=== PATIENT | female | born 1940 | race Caucasian/White ===

== ENCOUNTER 2018-02-22 20:30 | Emergency (ER) | payer MEDICARE, BC ==
[2018-02-22 20:45] VITALS: BP 130/76
[2018-02-22] MEDS ORDERED: Cephalexin CAP* 500 MG PO ONE (22:26)
--- NOTE | 2018-02-22 22:37 | ED ---
Laceration/Wound HPI - HPI Summary HPI Summary: Complains of skin tear to the dorsal surface of right hand from playing with grandchild.. Tetanus status up-to-date. Denies any other pain or injury. Denies loss of sensation or function distally in her right hand. No anti-coag. - History of Current Complaint Stated Complaint: RT HAND INJURY Time Seen by Provider: 02/22/18 21:29 Hx Obtained From: Patient Mechanism of Injury: Sharp/Blunt Trauma Onset Severity: Mild Current Severity: Mild Pain Intensity: 4 Pain Scale Used: 0-10 Numeric Associated Signs & Symptoms: Negative - Allergy/Home Medications Allergies/Adverse Reactions: Allergies Allergy/AdvReac Type Severity Reaction Status Date / Time Penicillins Allergy Unknown Verified 02/22/18 20:40 Reaction Details opiods Allergy Unknown Uncoded 02/22/18 20:40 Reaction Details PMH/Surg Hx/FS Hx/Imm Hx Endocrine/Hematology History: Denies: Hx Anticoagulant Therapy History: Denies: Hx Dialysis Infectious Disease History: No Infectious Disease History: Denies: Traveled Outside the [place] in Last 30 Days - Social History Alcohol Use: None Substance Use Type: Reports: None Smoking Status (MU): Former Smoker Review of Systems Constitutional: Negative Eyes: Negative ENT: Negative Cardiovascular: Negative Respiratory: Negative Gastrointestinal: Negative Genitourinary: Negative Musculoskeletal: Negative Skin: Other Neurological: Negative Psychological: Normal All Other Systems Reviewed And Are Negative: Yes Physical Exam - Summary Physical Exam Summary: Skin tear to dorsal surface of right hand. Inferior subdermal surfaces intact. PMS intact on right hand Triage Information Reviewed: Yes Vital Signs On Initial Exam: Initial Vitals Temp Pulse Resp BP Pulse Ox 98.6 F 74 16 130/76 98 02/22/18 20:40 02/22/18 20:40 02/22/18 20:40 02/22/18 20:40 02/22/18 20:40 Vital Signs Reviewed: Yes Appearance: Positive: Well-Appearing Skin: Positive: Warm Head/Face: Positive: Normal Head/Face Inspection Eyes: Positive: Normal Neck: Positive: Supple Respiratory/Lung Sounds: Positive: Clear to Auscultation Cardiovascular: Positive: Normal Abdomen Description: Positive: Nontender Musculoskeletal: Positive: Normal Neurological: Positive: Normal Psychiatric: Positive: Normal AVPU Assessment: Alert - Chet Coma Scale Best Eye Response: 4 - Spontaneous Best Motor Response: 6 - Obeys Commands Best Verbal Response: 5 - Oriented Coma Scale Total: 15 Procedures - Laceration/Wound Repair 1 Location: upper extremity Description: Linear Length, Depth and Shape: 7cm x .25cm Betadine Prep?: No - chlorhexidine prep Irrigated w/ Saline (ccs): 30 - saline plus chlorhexidine Laceration/Wound Explored: clean, no foreign body removed Closure: Skin Adhesive - Tegaderm used to approximate laceration edges. Debridement: minimal Number of Sutures: 0 Diagnostics - Vital Signs Vital Signs Temp Pulse Resp BP Pulse Ox 02/22/18 20:40 98.6 F 74 16 130/76 98 - Laboratory Lab Statement: Any lab studies that have been ordered have been reviewed, and results considered in the medical decision making process. Laceration Repair Course/Dx - Course Course Of Treatment: Complains of skin tear to the dorsal surface of right hand from playing with grandchild.. Tetanus status up-to-date. Denies any other pain or injury. Denies loss of sensation or function distally in her right hand. No anti-coag. PE: Skin tear to dorsal surface of right hand. Inferior subdermal surfaces intact. PMS intact on right hand. PLAN: Skin avulsion approximated and maintained in place with Tegaderm. Tetanus up-to-date. Rx for Keflex 5 days. - Clinical Impression Provider Diagnoses: Skin tear Discharge - Sign-Out/Discharge Documenting (check all that apply): Patient Departure - Discharge Plan Condition: Stable Disposition: HOME Prescriptions: Cephalexin CAP* [Keflex CAP*] 500 mg PO TID 4 Days #12 cap Patient Education Materials: Skin Tear (ED) Referrals: No Primary Care Phys,NOPCP [Primary Care Provider] - Additional Instructions: Keep wound clean and dry. Take antibiotics as directed. Follow-up with primary care. Return to the ED for any new or worsening symptoms - Billing Disposition and Condition Condition: STABLE Disposition: Home
== END 2018-02-22 22:46 | disposition home or self-care (01) ==
LOC: ED 20:30
DX: S61.411A Laceration without foreign body of right hand, initial encounter (principal); X58.XXXA Exposure to other specified factors, initial encounter; Y92.9 Unspecified place or not applicable; Z87.891 Personal history of nicotine dependence; Z88.5 Allergy status to narcotic agent; Z88.0 Allergy status to penicillin
CPT/HCPCS: 12002; 99282; A9270-GY